=== PATIENT | male | born 1955 | race Caucasian/White ===

== ENCOUNTER 2016-12-30 08:39 | Inpatient (IN) ==
[2016-12-30] MEDS ORDERED: LORazepam 2 MG/1 ML VIAL ONE (09:07)
[2016-12-30] MEDS ORDERED: SODIUM CHLORIDE 0.9% 1,000 ML IV STA (09:10)
[2016-12-30] MEDS ORDERED: LORazepam 2 MG/1 ML VIAL IV STA ×2 (09:10)
[2016-12-30 09:16] LABS: Apearance,Urine CLEAR (Clear); Bacteria,Urine Occasional /HPF (Few); Bilirubin,Urine Negative (Negative); Blood, Urine Moderate mg/dL (Negative); Glucose,Urine (UA) Negative (Negative); Hyaline Casts,Urine 1 /LPF (0-3); Ketones,Urine Negative (Negative); Mucus,Urine Occasional /LPF (Occasional); Nitrite,Urine Negative (Negative); Protein,Urine Negative; RBC,Urine 1 /HPF (0-4); Urine Color Yellow (Yellow); Urine Specific Gravity 1.006 (1.001-1.035); Urine Urobilinogen < 2.0 EU/DL (0.2-1.0)
[2016-12-30 09:21] LABS: Barbiturates Screen,Urine Negative (Negative); Benzodiazepines Screen,Urine Positive (Negative); Cannabinoid Screen,Urine Negative (Negative); Opiate Screen,Urine Positive (Negative); Phencyclidine Screen,Urine Negative (Negative)
--- NOTE | 2016-12-30 09:37 | Emergency Department Note ---
IEkaterina Gwan, am scribing for, and in the presence of, Amna Lee DO 09:26 . IJesus Debra, DO, personally performed the services described in this documentation, ascribed by Oliver Tobar in my presence, and it is both accurate and complete . Arrival - Arrival Chief Complaint: Altered Mental Status Stated Complaint: overdose ED Nursing Triage Note: Brought in by EMS c/o altered LOC and possible overdose. Patient's states that [place] and he was found beside his truck this morning. Patient's clothes saturated with rain. Removed clothes. Warm blankets applied. EMS reports that patient had snoring respirations upon their arrival, some improvement after Narcan. Patient responds to painful stimuli. Fentanyl 100mcg and 25mcg patch removed from patient's back and wasted in sharps box. Mode of Arrival: Stretcher Limitations: Altered Mental Status Source: Significant other, Old Records Reviewed, RN Notes Reviewed Time Seen by Provider: 12/30/16 09:12 - History of Present Illness HPI Narrative: Pt is a 61 y/o male who presents to the ED via EMS for further evaluation of AMS and possible overdose with an onset last night. Patient is a poor historian and is accompanied by his . stated that pt last known well time was last night s/p completing some yard work. continued to stated that she retrieved to the house earlier than the patient did. After some time she went back out to the pasture to check on the pt and she found him asleep in his truck. then said that she left the pt out there all night to sleep. She returned in the morning to find that the pt was hard to arouse prompting her to alert EMS. Upon arrival, EMS stated that pt clothes were saturated and that pt was unresponsive. En route, pt was given several warm blankets and Narcan which resulted in some response. While in ED, patient soiled himself and climbed over the bed railing causing him to fall on the floor. Nurses noted that pt had a Fentanyl patch. confirmed that pt is followed by Dr. Selby at [facility] and that he is being followed by the physicians at [facility] in which he received that two Fentanyl Patches for 100mcg and 25mcg. denies that pt has had to be hospitalized for this kind of episode before. Pt has a SHx of excessive ETOH use and he has a hx of prolonged patterns of sleep. No other problems/complaints reported in ED. Onset (ago): hour(s) Consistency: constant Severity: moderate Allergies/Adverse Reactions: Allergies Allergy/AdvReac Type Severity Reaction Status Date / Time lincomycin [From Lincocin] Allergy Unknown/Unable Verified 02/25/15 12:31 to obtain Home Medications: Home Medications Medication Instructions Recorded Confirmed Type ALPRAZolam [Alprazolam] 1 mg PO Q6H PRN 02/25/15 12/30/16 History Baclofen 10 mg PO TID 02/25/15 12/30/16 History Donepezil [Aricept] 10 mg PO BEDTIME 02/25/15 12/30/16 History Meloxicam 15 mg PO DAILY PRN 02/25/15 12/30/16 History Memantine [Namenda] 10 mg PO BID 02/25/15 12/30/16 History [place]-3 Fatty Acids/Fish Oil [Fish 1 each PO DAILY 02/25/15 12/30/16 History Oil 1,000 mg Softgel] Pregabalin [Lyrica] 75 mg PO TID 02/25/15 12/30/16 History Rosuvastatin [Crestor] 10 mg PO DAILY 02/25/15 12/30/16 History fentaNYL 100 MCG/HR PATCH 1 patch TRANSDERM Q3DAY 02/25/15 12/30/16 History [Duragesic 100 Patch] fentaNYL 25 MCG/HR PATCH 1 patch TRANSDERM Q3DAY 02/25/15 12/30/16 History [Duragesic 25 Patch] Aspirin [Aspirin EC] 81 mg PO DAILY 12/30/16 12/30/16 History Dextroamphetamine/Amphetamine 30 mg PO BID 12/30/16 12/30/16 History [Adderall 30 mg Tablet] Multivitamin [Multivitamins] 1 each PO DAILY 12/30/16 12/30/16 History Oxycodone HCl 10 mg PO BID PRN 12/30/16 12/30/16 History PARoxetine HCl [Paxil] 60 mg PO BEDTIME 12/30/16 12/30/16 History Pantoprazole Tab [Protonix Tab] 40 mg PO DAILY 12/30/16 12/30/16 History Review of System - Review of System ROS unobtainable: due to mental status Medical,Surgical,& Family Hx - Medical History Psychological: History of: Anxiety Disorders Musculoskeletal: History of: Back/Neck Problems (CHRONIC) - Family History Family History: Reports;: Family Hypertension, Family Stroke Denies;: Family Cancer, Family Diabetes, Family Heart Disease, Family Psychiatric Problems - Social History Smoking Status: Unknown if ever smoked Frequency of Alcohol Use: Unknown Type of Drug Use: Unknown Exam Vital Signs: Vital Signs Temperature 97.9 F 12/30/16 08:50 Pulse Rate 65 12/30/16 11:00 Respiratory Rate 23 12/30/16 11:00 Blood Pressure 134/60 12/30/16 11:00 O2 Sat by Pulse Oximetry 100 12/30/16 11:00 - General Exam limited due to: uncooperative General appearance: other (pt was twitching constantly; poor hygiene noted; no evidence of trauma) - Head Head exam: Present: atraumatic, normocephalic - Eye Eye exam: Present: PERRL. Absent: normal appearance (pupils were pinpoint and reactive to light) - Neurological Exam Neurological exam: Present: other (Patient is twitching; unresponsive ) Course Course Narrative: spoke with hospitalist, who will admit pt Results - Labs CBC & BMP: 12/30/16 08:59 12/30/16 08:59 Lab Results: I have reviewed the patients labs Labs: Laboratory Tests 12/30/16 12/30/16 08:59 08:59 Urine pH 5.0 Ur Specific [place] 1.006 Urine Blood Moderate Urine Urobilinogen < 2.0 H Urine RBC 1 Urine Bacteria Occasional Hyaline Casts 1 Urine Mucus Occasional Urine Opiates Screen Positive H Ur Barbiturates Screen Negative Ur Phencyclidine Scrn Negative U Amphetamine/Methamph Negative U Benzodiazepines Scrn Positive H U Cocaine Metab Screen Negative U Cannabinoids Screen Negative Laboratory Tests 12/30/16 08:59 WBC 17.5 H RBC 4.72 Hgb 15.3 Hct 43.2 Plt Count 184 Neut % (Auto) 88.9 H Lymph % (Auto) 7.3 L Neut # (Auto) 15.5 H Lymph # (Auto) 1.3 L Laboratory Tests 12/30/16 08:59 Sodium 142 Potassium 4.0 Chloride 104 Carbon Dioxide 24 Anion Gap 18.0 H BUN 12 Creatinine 1.00 Glucose 122 H Lactic Acid 6.3 H AST 103 H Ammonia 39 H - Diagnostic Findings Procedure: CT: report reviewed by me (CT Head: 1. No acute intracranial process is identified. 2. Mild ethmoid sinus disease. ) Disposition Clinical Impression: Drug overdose, Altered mental status Case discussed with: patient's family Disposition: Still a Patient Condition: Stable Time of Disposition: 11:51
[2016-12-30 09:41] LABS: Basophils # 0.1 10*3/uL (0.0-0.2); Basophils % 0.4 % (0.0-0.8); Eosinophils % 0.1 % (0.00-10.9); Hematocrit 43.2 VOL% (42.0-52.0); Hemoglobin 15.3 GM/DL (14.0-18.0); Immature Granulocytes % 0.6 %; Lymphocytes # 1.3 10*3/uL (1.4-4.0); Lymphocytes % 7.3 % (21.2-54.2); Mean Corpuscular HGB Conc 35.4 GM/DL (32-36); Mean Corpuscular Hemoglobin 32 PG (27-34); Mean Corpuscular Volume 91.5 FL (87-102); Mean Platelet Volume 10.7 FL (9.6-12.0); Monocytes # 0.5 10*3/uL (0.11-0.8); Monocytes % 2.7 % (1.7-12.7); Neutrophils # 15.5 10*3/uL (1.4-7.4); Neutrophils % 88.9 % (38.7-73.9); Platelet Count 184 T/CUMM (130-400); Red Blood Count 4.72 MC/CUMM (3.8-5.5); Red Cell Distribution Width 12.6 % (9.3-17.3); White Blood Count 17.5 T/CUMM (4-12)
[2016-12-30 10:12] LABS: Albumin 3.9 G/DL (3.4-5.0); Bilirubin,Total 0.6 MG/DL (0.2-1.0); Calcium 8.9 MG/DL (8.5-10.1); Lactic Acid 6.3 MMOL/L (0.4-2.0); Osmolality,Calculated 283.1 MOS/KG (273-304); Total Protein 7.1 G/DL (6.4-8.3)
--- NOTE | 2016-12-30 10:12 | CT Report ---
Referring physician: Amna Lee DO Exam: CT brain without contrast Date: December 30, 2016 Comparison: CT brain without contrast February 25, 2015 Reason: Altered level of consciousness The patient is an Emergency Department patient on December 30, 2016. Technique: Axial images of the head were obtained without the use of contrast. Total DLP was 1012.8 mGy*cm. Findings: There is mild generalized cerebral and cerebellar atrophy/volume loss. No hydrocephalus or midline shift is present. There is no evidence of recent intracranial hemorrhage, abnormal mass effect or acute infarction. No acute osseous process is seen. There is mucosal thickening within the right ethmoid air cells. The mastoid air cells are clear. Impression: 1. No acute intracranial process is identified. 2. Mild ethmoid sinus disease. The CT exam was performed using one or more of the following dose reduction techniques: Automated exposure control and adjustment of the mA and/or kV according to patient size. PROCEDURE INTERPRETED AT [facility] DEPARTMENT OF RADIOLOGY Final Report Signed by: Dr. Becky Gil
--- NOTE | 2016-12-30 12:15 | Hospitalist History & Physical ---
<Rob Rosario - Last Filed: 12/30/16 12:02> Assessment and Plan (1) Altered mental status Status: Acute Assessment and plan: Likely secondary to alcoholic intoxication and/or drug overdose. Head CT is negative for any acute intracranial process. Patient did test positive for opiates and benzodiazepines. Serum alcohol level is pending. Patient will be admitted to the ICU. Monitor for alcohol withdrawal syndromes. Continue Ativan as needed. Check thiamine level. Current Visit: Yes (2) Drug overdose Status: Acute Assessment and plan: Patient has a positive for opiates and benzodiazepines. Narcan was given by EMS. Continue to monitor. Current Visit: Yes (3) Chronic pain Status: Chronic Current Visit: No (4) Polypharmacy Status: Chronic Assessment and plan: Patient takes several pain medications, anxiolytics, medications for memory loss. Patient had apparently been seen by PCP in [place] and has begun attempting to reconcile medications. Patient will need counseling and medication reconciliation prior to discharge. Current Visit: No History of Present Illness Chief complaint: Altered LOC History of present illness: Mr. Solomon is a 61 year old male with a past medical history significant for chronic back pain, arthritis, short-term memory loss, anxiety and alcoholism who presented to the [facility] ED via EMS with altered mental status since this morning. 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 Apparently, the patient does this quite frequently as he has periods of prolonged sleeping. states that she found him still asleep and difficult to arouse in his truck this morning. She notes that the patient had this " thick mucus" that he was trying to spit out when he eventually fell onto the ground, wet his pants and the called EMS. Upon arrival, EMS noted that the patient's clothes were saturated. He was given several warm blankets and Narcan with some response. states he asked "where am I" while in the ambulance and was apparently responsive while headed down for a CT of the head. In the ED, patient was given Ativan and IV fluids. On exam, the patient is in deep sleep and quite difficult to arouse. He does withdraw from pain, but he will not wake up. states he drinks 6-7 beers a day. She denies tobacco use. He has several pain medications as well as Aricept and Namenda for his short-term memory loss. Lab work does reveal elevated white count at 17.5, and positive levels of opioids and benzodiazepines. The patient will be admitted to the hospital medicine service and transferred to the ICU for further evaluation and treatment. He is listed as a full code. Case has been discussed with Dr. Hernández. Home Medications Medication Instructions Recorded Confirmed Type ALPRAZolam [Alprazolam] 1 mg PO Q6H PRN 02/25/15 12/30/16 History Baclofen 10 mg PO TID 02/25/15 12/30/16 History Donepezil [Aricept] 10 mg PO BEDTIME 02/25/15 12/30/16 History Meloxicam 15 mg PO DAILY PRN 02/25/15 12/30/16 History Memantine [Namenda] 10 mg PO BID 02/25/15 12/30/16 History [place]-3 Fatty Acids/Fish Oil [Fish 1 each PO DAILY 02/25/15 12/30/16 History Oil 1,000 mg Softgel] Pregabalin [Lyrica] 75 mg PO TID 02/25/15 12/30/16 History Rosuvastatin [Crestor] 10 mg PO DAILY 02/25/15 12/30/16 History fentaNYL 100 MCG/HR PATCH 1 patch TRANSDERM Q3DAY 02/25/15 12/30/16 History [Duragesic 100 Patch] fentaNYL 25 MCG/HR PATCH 1 patch TRANSDERM Q3DAY 02/25/15 12/30/16 History [Duragesic 25 Patch] Aspirin [Aspirin EC] 81 mg PO DAILY 12/30/16 12/30/16 History Dextroamphetamine/Amphetamine 30 mg PO BID 12/30/16 12/30/16 History [Adderall 30 mg Tablet] Multivitamin [Multivitamins] 1 each PO DAILY 12/30/16 12/30/16 History Oxycodone HCl 10 mg PO BID PRN 12/30/16 12/30/16 History PARoxetine HCl [Paxil] 60 mg PO BEDTIME 12/30/16 12/30/16 History Pantoprazole Tab [Protonix Tab] 40 mg PO DAILY 12/30/16 12/30/16 History Allergies Allergy/AdvReac Type Severity Reaction Status Date / Time lincomycin [From Lincocin] Allergy Unknown/Unable Verified 02/25/15 12:31 to obtain Medical,Surgical,& Family Hx - Medical History Psychological: History of: Anxiety Disorders Musculoskeletal: History of: Back/Neck Problems (CHRONIC) - Family History Family History: Reports;: Family Hypertension, Family Stroke Denies;: Family Cancer, Family Diabetes, Family Heart Disease, Family Psychiatric Problems - Social History Smoking Status: Unknown if ever smoked Frequency of Alcohol Use: Frequently Type of Drug Use: Unknown Marital Status: Lives With:: Spouse Functional capacity: independent ambulation ROS unobtainable: due to encephalopathy Exam - Constitutional Vitals: Period Temp Pulse Resp BP Sys/Hernandez Pulse Ox Last 24 Hr 97.9 F-97.9 F 65-88 16-25 133-163/57-88 97-100 Exam: General appearance: normal weight, no acute distress - Head Head exam: Present: normocephalic, atraumatic - Eye Eye exam: Present: EOMI. Absent: conjunctival injection, nystagmus Pupils: Present: LARON, normal accommodation - ENT ENT exam: Present: normal exam, normal external ear exam - Neck Neck exam: Present: normal inspection. Absent: lymphadenopathy, tenderness, thyromegaly - Respiratory Respiratory exam: Present: clear to auscultation bilaterally. Absent: rales, rhonchi, wheezes - Cardiovascular Cardiovascular exam: Present: regular rate and rhythm. Absent: carotid bruit, gallop, rubs - GI/Abdominal GI/Abdominal exam: Present: normal bowel sounds. Absent: ascites, distended, mass - Extremities Exam Extremities exam: Present: normal inspection, normal capillary refill. Absent: edema - Back Exam Back exam: Absent: CVA tenderness (L), CVA tenderness (R) - Neurological Exam Neurological exam: Present: Reflexes intact, altered level of consciousness - Psychiatric Psychiatric exam: Present: normal affect, normal mood - Skin Skin exam: Present: normal color, warm, dry Results - Labs CBC & BMP: 12/30/16 08:59 12/30/16 08:59 Lab Results: I have reviewed the past 24 hour labs - Diagnostic Findings Procedure: MRI: image reviewed by me, report reviewed by me <Raymon Hernández - Last Filed: 12/30/16 13:44> History of Present Illness History of present illness: Mr. Solomon is a 61 year old male with previous history of alcohol abuse. Patient 's states that he has been extremely lethargic and sleeping for almost all of today. He has a previous history of chronic low back pain for which he takes an unknown analgesic medication. When she was unable to arouse him this morning, she called EMS. He was administered intravenous Narcan by EMS with some temporary improvement in his wakefulness. For the time he arrived at the [facility] emergency department he had lapsed back into his severe lethargy. Urine drug screen and alcohol levels are pending. The patient will be admitted to observation. I have reviewed the case with physician physical laboratory assistant Rob Rosario. I have reviewed all of the laboratory test results, interviewed the patient's , and examined the patient. I agree with the plans as outlined by Mr. Vitalein. Exam - Constitutional Vitals: Period Temp Pulse Resp BP Sys/Hernandez Pulse Ox Last 24 Hr 97.9 F-97.9 F 65-88 16-25 133-163/57-88 97-100 Results - Labs CBC & BMP: 12/30/16 08:59 12/30/16 08:59
[2016-12-30] MEDS ORDERED: ONDANSETRON 4 MG/2 ML VIAL IV PRN (12:27)
[2016-12-30] MEDS ORDERED: LACTULOSE 20 GM/30 ML UDCUP PO PRN (12:27)
[2016-12-30] MEDS ORDERED: ZALEPLON 5 MG CAPSULE PO PRN (12:27)
[2016-12-30] MEDS ORDERED: ACETAMINOPHEN 325 MG TABLET PO PRN (12:27)
[2016-12-30] MEDS ORDERED: MORPHINE 2 MG/1 ML SYRINGE IV PRN (12:27)
[2016-12-30] MEDS ORDERED: DOCUSATE SODIUM 100 MG CAPSULE PO PRN (12:27)
[2016-12-30 12:54] LABS: PT Patient Result 11.1 SECS; Partial Thromboplastin Time 25.9 SECS (0-40)
[2016-12-30 12:56] LABS: Alanine Aminotransferase 31 U/L (16-61); Albumin 3.9 G/DL (3.4-5.0); Alkaline Phosphatase 97 U/L (45-117); Aspartate Amino Transferase 105 U/L (0-37); Blood Urea Nitrogen 12 MG/DL (7-18); Calcium 8.9 MG/DL (8.5-10.1); Glucose 123 MG/DL (74-106); Osmolality,Calculated 281.3 MOS/KG (273-304); Sodium 141 MMOL/L (136-145); Total Protein 7.2 G/DL (6.4-8.3)
[2016-12-30 13:11] LABS: Folate > 24.0 NG/ML (5.4-24.0); Vitamin B12 483 PG/ML (211-911)
[2016-12-30] MEDS: SODIUM CHLORIDE 0.9% 1,000 ML IV SCH (15:25)
[2016-12-30] MEDS ORDERED: diphenhydrAMINE 50 MG/1 ML VIAL ONE (16:56)
[2016-12-30] MEDS ORDERED: methylPREDNISolone SOD SUC 125 MG/2 ML VIAL ONE (16:56)
[2016-12-30] MEDS ORDERED: methylPREDNISolone SOD SUC 125 MG/2 ML VIAL IV STA (16:59)
[2016-12-30] MEDS ORDERED: diphenhydrAMINE 50 MG/1 ML VIAL IV STA (17:00)
[2016-12-30] MEDS: LORazepam 2 MG/1 ML VIAL IV PRN (22:31)
[2016-12-31] MEDS: SODIUM CHLORIDE 0.9% 1,000 ML IV SCH ×5 (00:30→20:31)
[2016-12-31] MEDS ORDERED: PNEUMOCOCCAL VACCINE (23 VALENT) 0.5 ML VIAL IM ONE (09:00)
[2016-12-31] MEDS: PANTOPRAZOLE 40 MG TABLET PO SCH (09:36)
--- NOTE | 2016-12-31 10:51 | Hospitalist Progress Note ---
Assessment and Plan (1) Alcohol abuse Status: Acute Assessment and plan: As noted above I have discussed with him an alcohol detox program which she is reluctantly considering because of pressure from his family. Current Visit: Yes (2) Chronic pain Status: Chronic Assessment and plan: He has chronic back pain for which she has been treated with fentanyl and oxycodone. Current Visit: No (3) Dementia Status: Chronic Assessment and plan: He is treated chronically with donepezil and memantine. He appears clinically stable to me at the present time. Current Visit: No (4) Drug overdose Status: Acute Assessment and plan: He appears recovered this morning. Current Visit: Yes Hospitalist: Subjective Interval history: Mr. Solomon was hospitalized here yesterday severely obtunded from an overdose of his medications and alcohol. He has been treated with a combination of oxycodone, Adderall, fentanyl, memantine, donepezil, and alprazolam for dementia and chronic pain syndrome. In addition he has been consuming approximately 10 bottles of beer daily at a minimum. His medications were temporarily discontinued. He is now awake requesting that his medications be restarted. I have discussed with him alcohol detox medication which she is willing to consider reluctantly. Family is eager for for him to get into an alcohol withdrawal program. Exam - Constitutional Vitals: Period Temp Pulse Resp BP Sys/Hernandez Pulse Ox Last 24 Hr 97.2 F-98.1 F 62-95 15-28 103-160/45-89 90-100 General appearance: no acute distress - Head Head exam: Present: normal inspection, normocephalic - Eye Eye exam: Present: EOMI Pupils: Present: LARON - ENT ENT exam: Present: other (Swelling of his tongue.) - Neck Neck exam: Present: normal inspection - Respiratory Respiratory exam: Present: clear to auscultation bilaterally - Cardiovascular Cardiovascular exam: Present: regular rate and rhythm - GI/Abdominal GI/Abdominal exam: Present: normal bowel sounds, soft - Extremities Exam Extremities exam: Present: normal inspection - Neurological Exam Neurological exam: Present: alert, oriented X3 - Psychiatric Psychiatric exam: Present: normal affect, normal mood - Skin Skin exam: Present: normal color, warm, dry Results - Labs CBC & BMP: 12/30/16 08:59 12/30/16 08:59
[2016-12-31] MEDS ORDERED: ALPRAZolam 0.5 MG TABLET PO PRN (11:00)
[2016-12-31] MEDS ORDERED: MELOXICAM 7.5 MG TABLET PO PRN (11:00)
[2016-12-31] MEDS ORDERED: oxyCODONE ER 10 MG TABLET PO PRN (11:00)
[2016-12-31] MEDS: LORazepam 2 MG/1 ML VIAL IV PRN ×2 (12:55→22:39)
[2016-12-31] MEDS: BACLOFEN 10 MG TABLET PO SCH ×2 (14:54→20:32)
[2016-12-31] MEDS: PREGABALIN 75 MG CAPSULE PO SCH ×2 (14:54→20:32)
[2016-12-31] MEDS: MEMANTINE 10 MG TABLET PO SCH (20:32)
[2016-12-31] MEDS ORDERED: AMPHETAMINE PO SCH (21:00)
[2016-12-31] MEDS ORDERED: DONEPEZIL 10 MG TABLET PO SCH (21:00)
[2016-12-31] MEDS ORDERED: DEXTROAMPHETAMINE PO SCH (21:00)
[2016-12-31] MEDS ORDERED: PARoxetine 20 MG TABLET PO SCH (21:00)
[2017-01-01] MEDS: SODIUM CHLORIDE 0.9% 1,000 ML IV SCH (03:59)
[2017-01-01] MEDS ORDERED: OMEGA 3 ACID ETHYL ESTERS 1 GM CAPSULE PO SCH (09:00)
[2017-01-01] MEDS ORDERED: ROSUVASTATIN 10 MG TABLET PO SCH (09:00)
[2017-01-01] MEDS ORDERED: MULTIVITAMIN (CENTRUM) TABLET PO SCH (09:00)
[2017-01-01] MEDS ORDERED: PANTOPRAZOLE 40 MG TABLET PO SCH (09:00)
[2017-01-01] MEDS ORDERED: ASPIRIN EC 81 MG TABLET PO SCH (09:00)
[2017-01-01] MEDS: PANTOPRAZOLE 40 MG TABLET PO SCH (09:11)
[2017-01-01] MEDS: MEMANTINE 10 MG TABLET PO SCH (09:11)
[2017-01-01] MEDS: PREGABALIN 75 MG CAPSULE PO SCH (09:11)
[2017-01-01] MEDS: BACLOFEN 10 MG TABLET PO SCH (09:11)
--- NOTE | 2017-01-01 09:55 | Discharge Summary ---
Hospital Course - Hospital Course Hospital Course: Mr. Solomon was hospitalized here on 12/30/16 severely obtunded. Is a previous history of chronic back pain for which she is on multiple opiate medications, dementia for which she has been treated with donepezil and memantine, and chronic alcohol abuse. On admission to the hospital here he was administered intravenous Narcan with significant improvement of his mental status. I have discussed with the patient and his alcohol detox which he has declined. At the time of his discharge he was stable with no complaints. Diagnosis - Discharge Diagnosis (1) Alcohol abuse Status: Chronic (2) Chronic pain Status: Chronic (3) Dementia Status: Chronic (4) Drug overdose Status: Acute Discharge Plan - Discharge Data Condition at Discharge: Stable Discharge Diet: advance to your usual diet Activity: resume usual activities as tolerated - Discharge Medications Continue [place]-3 Fatty Acids/Fish Oil [Fish Oil 1,000 mg Softgel] 1 each PO DAILY ALPRAZolam [Alprazolam] 1 mg PO Q6H PRN PRN Reason: Anxiety Baclofen 10 mg PO TID Donepezil [Aricept] 10 mg PO BEDTIME fentaNYL 100 MCG/HR PATCH [Duragesic 100 Patch] 1 patch TRANSDERM Q3DAY Rosuvastatin [Crestor] 10 mg PO DAILY Memantine [Namenda] 10 mg PO BID Meloxicam 15 mg PO DAILY PRN PRN Reason: inflammation fentaNYL 25 MCG/HR PATCH [Duragesic 25 Patch] 1 patch TRANSDERM Q3DAY Pregabalin [Lyrica] 75 mg PO TID Multivitamin [Multivitamins] 1 each PO DAILY Aspirin [Aspirin EC] 81 mg PO DAILY Pantoprazole Tab [Protonix Tab] 40 mg PO DAILY PARoxetine HCl [Paxil] 60 mg PO BEDTIME Oxycodone HCl 10 mg PO BID PRN PRN Reason: Pain Dextroamphetamine/Amphetamine [Adderall 30 mg Tablet] 30 mg PO BID - Follow Up or Referral - Forms/Instructions Exam - Constitutional Vitals: Period Temp Pulse Resp BP Sys/Hernandez Pulse Ox Last 24 Hr 97.8 F-99.9 F 74-100 16-20 113-136/45-72 92-99 General appearance: no acute distress - Head Head exam: Present: normal inspection, normocephalic - Eye Eye exam: Present: EOMI Pupils: Present: LARON - Neck Neck exam: Present: normal inspection - Respiratory Respiratory exam: Present: clear to auscultation bilaterally - Cardiovascular Cardiovascular exam: Present: regular rate and rhythm - GI/Abdominal GI/Abdominal exam: Present: normal bowel sounds, soft, other (Nontender with no palpable masses or hepatosplenomegaly.) - Extremities Exam Extremities exam: Present: normal inspection - Back Exam Back exam: Present: normal inspection - Neurological Exam Neurological exam: Present: alert, oriented X3 - Psychiatric Psychiatric exam: Present: normal affect, normal mood - Skin Skin exam: Present: normal color, warm, dry Discharge Results Procedures and tests throughout hospitalization: Pending Orders 12/30/16 20:04 MRSA Surveillence, Inf Control Routine DS: Provider Date of admission: 12/30/16 11:26 Primary care physician: . No PCP Attending physician on admission: Raymon Hernández Consults: 12/30/16 16:26 Consult to Pharmacy [CONS] Routine Reason for Pharmacy Consult: Adjust Meds Renal Funct 12/31/16 10:54 Consult to Case Mgmt/Social Srvs [CONS] Routine Reason for Case Mgmt/Social Srvs: Other Discharge Planning Discharging clinician: Raymon Hernández Expected date of discharge: 01/01/17
[2017-01-01 11:43] VITALS: BP 145/71
== END 2017-01-01 11:40 | DRG 917 ==
LOC: EDUNIT# → N.ED 08:39 → N.EDINP 11:26 → N.CC 17:44 → N.2E 12-31 13:00